=== PATIENT | female | born 1970 | race Two or more races ===

== ENCOUNTER → 2019-07-30 | Outpatient (CLI) | payer OTHER ==
[2016-07-30] VITALS: BP 115/61
[~2019-07-30] MED LIST: IOHEXOL 300 MG/ML 100ML VIAL. IV ONE; LEVO25TA55 PO
[2019-07-30 11:15] LABS: CALCIUM 9.4 mg/dL (8.5-10.1); CREATININE 0.9 mg/dL (0.6-1.0); POTASSIUM 3.8 mmol/L (3.5-5.1)
--- NOTE | 2019-07-30 16:31 | RAD ---
EXAM: Chest CT with intravenous contrast. HISTORY: Pulmonary nodule follow-up. TECHNIQUE: Computed tomographic images of the chest were obtained following the administration of 75 cc Omnipaque 300 intravenous contrast. Multiplanar reformatting was performed. *One or more of the following individualized dose reduction techniques were utilized for this examination: 1. Automated exposure control. 2. Adjustment of the mA and/or kV according to patient size. 3. Use of iterative reconstruction technique. COMPARISON: Radiograph dated 07/29/2016. FINDINGS: The heart is normal in size. The aorta is normal in caliber. No pathologically enlarged mediastinal or hilar lymph node is seen. There is no pneumothorax or pleural effusion. There is a 2 mm nodule within the medial right upper lobe, possibly a partially calcified granuloma. There are 3 mm and 4 mm noncalcified nodules within the posterior right lower lobe (series 2, images 39 and 53). There is a 5 mm groundglass nodule within the right middle lobe (series 2, image 40). There is hepatic steatosis. The gallbladder is surgically absent. The visualized portions of the pancreas are unremarkable. The spleen is unremarkable. There is a 2.8 cm right adrenal nodule. There is partial visual location of a 4.2 cm hypodense lesion within the lateral left kidney, the attenuation of which is greater than simple fluid. There is no suspicious osseous lesion. IMPRESSION: 1. No acute thoracic finding. 2. Right-sided pulmonary nodules, the largest of which is groundglass and measures 5 mm. There is no prior CT to assess for interval change at the time of dictation. Follow-up and informed in one year if there are risk factors for pulmonary neoplasm. 3. Hepatic steatosis. 4. 2.8 cm right adrenal nodule, the attenuation of which is greater than expected for an adenoma. In the absence of prior studies for comparison, an adrenal protocol CT or MRI is recommended for characterization. 5. 4.2 cm hypodense lesion within the lateral left kidney, partially included on the [id number]. This may be a slightly complicated cyst. Sonography may be useful to confirm benignity. Electronically signed by: Hiral Mendiola MD (07/30/2019 4:28 PM) [id number]
== END | disposition home or self-care (01) ==
LOC: CT 11:30
PROVIDERS: ATTEND Family Medicine
DX: R91.8 Other nonspecific abnormal finding of lung field (principal); K76.0 Fatty (change of) liver, not elsewhere classified; E27.8 Other specified disorders of adrenal gland; E11.9 Type 2 diabetes mellitus without complications; I10 Essential (primary) hypertension; F17.200 Nicotine dependence, unspecified, uncomplicated; Z95.0 Presence of cardiac pacemaker; Z79.01 Long term (current) use of anticoagulants
CPT/HCPCS: 36415; 71260; 80048; Q9967

== ENCOUNTER → 2019-09-20 | Outpatient (CLI) | payer OTHER ==
[2016-07-30] VITALS: BP 115/61
[~2019-09-20] MED LIST changes: +CONTRAST GIVEN. MC PRN
--- NOTE | 2019-09-20 11:39 | RAD ---
Examination: CT ABDOMEN WO/W CONTRAST History: Adrenal mass Comparison/Correlation: CT chest with contrast 07/30/2019 Findings: Axial images of the abdomen were obtained prior to and following IV contrast. Post contrast imaging was performed in the late arterial, nephrographic and delayed excretory phases. Right costophrenic sulcus nodule measuring 0.25 cm diameter is present. Anterior right lower lung field nodule measuring less than 0.5 cm diameter again seen. Cholecystectomy noted. Liver, spleen, pancreas, and right kidney are normal. There is a right adrenal gland nodule measuring 2.5 cm x 1.3 cm. It is of 22 Hounsfield units on noncontrast imaging, 58 Hounsfield units on portal venous phase imaging, and 34 Hounsfield units on delayed respiratory phase imaging. The left renal lower pole, there is a 4 cm x 4.2 cm mildly hyperdense structure with Hounsfield units of 68. Very thin enhancing septation is suggested at the inferior pole and this is best seen on the late arterial phase.. This structure has Hounsfield units of 68 on precontrast and all postcontrast series. No enlarged abdominal lymph nodes are identified. Moderate quantity of stool in the colon is present. Visualized bony structures are unremarkable. Abdominal aorta is unremarkable. Impression: Right adrenal gland nodule which has enhancement characteristics of a benign adenoma. Left renal inferior pole structure with [place] enhancing septation noted. No enhancement otherwise is seen. This probably represents a hemorrhagic cyst or other benign process. 6 month follow-up CT of the kidneys without and with contrast is recommended to assess stability. No change in right lung base nodules. PQRS Compliance Statement: One or more of the following individualized dose reduction techniques were utilized for this examination: 1. Automated exposure control 2. Adjustment of the mA and/or kV according to patient size 3. Use of iterative reconstruction technique Electronically signed by: Shaw Romano MD (09/20/2019 11:36 AM) [facility]
== END | disposition home or self-care (01) ==
LOC: CT 09:59
PROVIDERS: ATTEND Family Medicine
DX: E27.8 Other specified disorders of adrenal gland (principal); Z90.49 Acquired absence of other specified parts of digestive tract
CPT/HCPCS: 74170; Q9967

== ENCOUNTER → 2019-11-26 | Outpatient (CLI) | payer OTHER ==
[2016-07-30] VITALS: BP 115/61
[~2019-11-26] MED LIST changes: +AMLO5TAB10 PO; +ASPI-630 PO; +ATOR10TA60 PO; -CONTRAST GIVEN. MC PRN; +ESCITALOPRAM OX20 MG PO; +GADOTERATE 7.5 MMOL/15ML VIAL. IVP ONE; -IOHEXOL 300 MG/ML 100ML VIAL. IV ONE; +METF500T16 PO; +NAPR-514 PO
--- NOTE | 2019-11-26 15:54 | KCIC ---
Examination: ABDOMEN WO/W CONTRAST History: Left renal mass Comparison/Correlation: 07/30/2019 CT chest with contrast, 09/20/2019 CT abdomen and pelvis with contrast, CT abdomen without contrast Findings: Multisequence axial and coronal images of the abdomen were obtained at the level of the kidneys. Following IV gadolinium contrast, axial images of the abdomen were obtained. The liver and spleen are not included in their superior aspect on all series. Mild signal dropout on out of phase images is noted involving the right adrenal gland nodule measuring 2.4 cm x 1.1 cm. This finding has remained stable in size compared to the previous CT exam. Left adrenal gland is unremarkable. Pancreas is normal. Cholecystectomy noted. Left lateral renal lower pole well-circumscribed structure is again identified. No significant enhancement identified. Septations are present but some of these these are also of high signal intensity on noncontrast imaging. It currently measures 3.5 cm anteroposterior by 4.3 cm transverse by 3.7 similar longitudinal. It is of intermediate to high signal on out of phase images and slightly lower signal on in phase images. There is indurated signal intensity noted at the superior aspect of this structure and a lower signal intensity, and at the inferior aspect of the structure by a septation. This differential appearance is not evident on the prior CT exam. Right kidney is normal. No enlarged upper abdominal lymph nodes. No upper abdominal ascites. Impression: Complex left renal lateral lower pole structure which has remained stable in size and morphology. Small septated components noted which some appear to have enhancement. There is differential appearance in the signal intensity within this structure raising question of interval hemorrhage. This finding is of the Bosniak 3 category. Considering the increasing complexity of the appearance of this lesion, tissue sampling should be considered. Electronically signed by: Shaw Romano MD (11/26/2019 3:52 PM) [id number]
== END | disposition home or self-care (01) ==
LOC: KCIC MRI 08:35
PROVIDERS: ATTEND Family Medicine
DX: N28.89 Other specified disorders of kidney and ureter (principal); E27.8 Other specified disorders of adrenal gland
CPT/HCPCS: 74183; A9575